=== PATIENT | female | born 1980 | race Caucasian/White ===

== ENCOUNTER → 2017-01-07 | Outpatient (CLI) | payer BC ==
--- NOTE | 2017-01-07 12:53 | CR ---
EXAMINATION: Left knee HISTORY: Pain COMPARISON: None TECHNIQUE: 4 views FINDINGS/IMPRESSION: There is no acute osseous abnormality, dislocation, or fracture identified. Bon e mineralization and joint spaces appear normal. No soft tissue swelling or joint effusion.
== END | disposition home or self-care (01) ==
LOC: MW.CHORTHO 10:12
PROVIDERS: ATTEND Physician Assistant
DX: M25.562 Pain in left knee (principal)
CPT/HCPCS: 73564-26-LT; 73564-LT

== ENCOUNTER → 2017-01-08 | Outpatient (CLI) | payer BC ==
--- NOTE | 2017-01-08 14:38 | MR ---
EXAMINATION: MRI of the left knee HISTORY: Pain COMPARISON: None TECHNIQUE: Multiplanar and multisequence images obtained of the left knee without contrast. FINDINGS: The patellar and quadriceps tendons appear intact. The ACL and the PCL are intact. The med ial and lateral collateral ligament complexes are preserved. The medial and lateral menisci are inta ct. There is no abnormal bone marrow signal. The articular surfaces appear grossly preserved. There is a small Arevalo's cyst measuring 2.5 x 1.7 cm. There is minimal edema within the superior lateral a spect of Hoffa's fat pad. IMPRESSION: 1. Minimal edema within the superior aspect of Hoffa's fat pad laterally. This likely represents mil d patellar tendon lateral femoral condyle friction syndrome. 2. Small Arevalo's cyst.
== END ==
LOC: MW.MRI 12:15
PROVIDERS: ATTEND Physician Assistant
DX: M25.562 Pain in left knee (principal); M71.22 Synovial cyst of popliteal space [Baker], left knee
CPT/HCPCS: 73721-26-LT; 73721-LT